=== PATIENT | female | born 1950 | race Caucasian/White ===

== ENCOUNTER 2017-11-14 22:06 | Observation (INO) | payer BC, OTHER ==
[~2017-11-14] VITALS: Ht 160 cm; Wt 77.6 kg
[2017-11-14 22:38] LABS: HEMATOCRIT 40.3 % (36.0-46.0); HEMOGLOBIN 13.2 G/DL (11.9-15.5); MCH 28.3 PG (29.0-34.0); MCHC 32.8 G/DL (30.0-36.0); MCV 86.3 FL (83-99); PLATELET COUNT 292 K/uL (156-360); RBC DIS.WIDTH-CV 13.9 % (11.8-14.6); RBC DIS.WIDTH-SD 43.7 % (39-53); RED BLOOD COUNT 4.67 M/uL (3.80-5.20); WHITE BLOOD COUNT 9.3 K/uL (4.1-10.2)
[2017-11-14 22:43] LABS: INTER. NORMALIZED RATIO 1.3
[2017-11-14 22:45] LABS: PTT 33.3 SEC (25-37)
[2017-11-14 22:51] LABS: CHLORIDE 105 mEq/L (99-109); POTASSIUM 3.6 mEq/L (3.7-5.4); SODIUM 142 mEq/L (136-147)
[2017-11-14 22:52] LABS: GLUCOSE 227 mg/dL (70-99)
[2017-11-14 22:56] LABS: CREATININE 1.3 mg/dL (0.6-1.3); GFR ESTIMATE (CALCULATED) 44 mL/min/
[2017-11-14 22:57] LABS: UREA NITROGEN (BUN) 44 mg/dL (9-23)
[2017-11-14 23:04] LABS: TROP-I INTERPRETATION NEGATIVE; TROPONIN-I < 0.01 ng/mL (0.0-0.30)
[2017-11-15 01:32] VITALS: BP 165/85
[2017-11-15] MEDS ORDERED: ERGOCALCIF50000 UNIT PO (01:49)
[2017-11-15] MEDS ORDERED: FOLIC ACID1 MG PO (01:50)
[2017-11-15] MEDS ORDERED: PREDNISONE10 MG PO (01:52)
[2017-11-15] MEDS ORDERED: LABETALOL HCL200 MG PO (01:52)
[2017-11-15] MEDS ORDERED: AMLODIPINE BESYL5 MG PO (01:53)
[2017-11-15] MEDS ORDERED: MYCOPHENOLATE250 MG PO (01:54)
[2017-11-15] MEDS ORDERED: CYCLOSPORINE M100 MG PO (01:56)
[2017-11-15] MEDS ORDERED: CHLORTHALIDONE25 MG PO (01:57)
[2017-11-15] MEDS ORDERED: ROSUVASTATIN CA10 MG PO (01:57)
[2017-11-15] MEDS ORDERED: WARFARIN SODIUM4 MG PO (01:59)
[2017-11-15] MEDS ORDERED: WARFARIN SODIUM5 MG PO (01:59)
[2017-11-15 02:00] VITALS: BP 165/85
[2017-11-15 07:44] VITALS: BP 127/77
[2017-11-15 09:13] LABS: INTER. NORMALIZED RATIO 1.4
[2017-11-15 09:31] LABS: CHLORIDE 105 MEQ/L (99-109); CREATININE 1.1 MG/DL (0.6-1.3); GFR ESTIMATE (CALCULATED) 53 mL/min/; GLUCOSE 141 mg/dL (70-99); POTASSIUM 3.9 MEQ/L (3.7-5.4); SODIUM 142 MEQ/L (136-147); UREA NITROGEN (BUN) 33 mg/dL (9-23)
[2017-11-15] MEDS ORDERED: NEORAL,GENGRAF25 MG PO (09:52)
[2017-11-15] MEDS ORDERED: INSULIN PUMP SC (09:53)
[2017-11-15] MEDS ORDERED: LOVENOX80 MG/0.8 SC (10:54)
== END 2017-11-15 12:08 | disposition home or self-care (01) ==
LOC: EME 22:06 → 4EAST 11-15 00:10 → EDOF 11-15 00:10 → 4EAST 11-15 00:10 → ENRESERV 11-15 00:11 → 4EAST 11-15 01:24
PROVIDERS: Internal Medicine
DX: I48.0 Paroxysmal atrial fibrillation (principal); E87.6 Hypokalemia; I10 Essential (primary) hypertension; Z94.0 Kidney transplant status; Z79.01 Long term (current) use of anticoagulants; E78.5 Hyperlipidemia, unspecified; Z92.25 Personal history of immunosuppression therapy; E11.9 Type 2 diabetes mellitus without complications; G47.33 Obstructive sleep apnea (adult) (pediatric); H35.30 Unspecified macular degeneration; Z85.820 Personal history of malignant melanoma of skin; Z85.828 Personal history of other malignant neoplasm of skin; Z87.441 Personal history of nephrotic syndrome; Z90.710 Acquired absence of both cervix and uterus; Z90.49 Acquired absence of other specified parts of digestive tract; Z83.3 Family history of diabetes mellitus; Z82.49 Family history of ischemic heart disease and other diseases of the circulatory system; Z80.6 Family history of leukemia; Z88.5 Allergy status to narcotic agent; Z88.2 Allergy status to sulfonamides
CPT/HCPCS: 71045; 80048; 83735; 83880; 84484; 85027; 85610; 85730; 93005; 99281; 99285; G0378; J1650; J7030; J7050; J7502; J7512; J7515; J7517